=== PATIENT | male | born 1935 | race Caucasian/White ===

== ENCOUNTER 2016-08-07 11:46 | Day surgery (SDC) | payer MEDICARE ==
[~2016-08-07] VITALS: Ht 175.3 cm; Wt 78.4 kg
[~2016-08-07 11:46] MED LIST: ASPI325T PO; ATEN25TA PO; ELIQ5TAB PO; EPIP0.3I2 IJ; ISOVUE-300 61% 50ML VIAL (Q9967) As Ordered ONE; LIDOCAINE 1% SDV INJ 30 ML VIAL As Ordered ONE; OMEP20CA3 PO; PRAV40TA2 PO; VANCOMYCIN 1000 MG/20 ML VIAL (J3370) As Ordered ONE
[2016-08-07] MEDS ORDERED: LR 500 ML IV ONE (12:00)
[2016-08-07] MEDS ORDERED: LR 1,000 ML IV ONE (12:00)
[2016-08-07] MEDS ORDERED: PROPOFOL 200 MG/20 ML VIAL As Ordered ONE ×2 (15:36→16:27)
[2016-08-07] MEDS ORDERED: fentaNYL 100 MCG/2 ML INJECTION (J3010) As Ordered ONE (15:36)
[2016-08-07] MEDS ORDERED: ePHEDrine SULFATE 25 MG/5 ML(5MG/ML) SYRINGE As Ordered ONE (16:45)
[2016-08-07] MEDS ORDERED: NEOSPORIN TOP OINT 15GM As Ordered ONE (17:41)
--- NOTE | 2016-08-07 18:05 | REP ---
PACEMAKER FLOURO: HISTORY: Pacemaker insertion. A single radiograph was obtained with a c-arm. The patient is status-post pace marker insertion. Fluoroscopic time 4 minutes 32 seconds. IMPRESSION: The patient is status-post pacemaker insertion. Signed by Chuck Menezes MD 08/07/2016 06:08 P
--- NOTE | 2016-08-07 19:03 | REP ---
Chest one-view HISTORY: Postop Comparison: 10/12/2013 The lungs are clear. The heart is normal in size. The pulmonary vasculature is normal in appearance. A cardiac pacemaker is present. There is no pneumothorax. Impression: No acute disease. Signed by hCuck Menezes MD 08/07/2016 06:55 P
[2016-08-07] MEDS ORDERED: ACETAMINOPHEN TAB 650MG DOSE (2X325MG) PO PRN (19:15)
--- NOTE | 2016-08-07 19:20 | RO ---
DATE OF PROCEDURE: 08/07/2016 PREOPERATIVE DIAGNOSES: 1. Complete heart block. 2. Medtronic implantable loop recorder in situ. POSTOPERATIVE DIAGNOSES: 1. Complete heart block. 2. Successful removal of implantable loop recorder. FINDINGS: 1. Complete heart block. 2. Implantable loop recorder successfully removed. OPERATIVE PROCEDURE: 1. Implantation of Medtronic dual chamber pacemaker. 2. Explantation of Medtronic loop recorder. SURGEON: Nikko Avilez MD DENTAL LABORATORY TECHNICIAN APPRENTICE: None. ANESTHESIA: Lidocaine 1% local/monitored anesthetic care. SPECIMENS: None. ESTIMATED BLOOD LOSS: Less than 20 mL. BLOOD PRODUCTS REPLACED: None. DRAINS: None. COMPLICATIONS: None. DESCRIPTION OF OPERATION: The patient was prepped and draped over the left anterior chest. Lidocaine 1% was used for local anesthetic. Ioban film was applied. A left subclavian venogram was performed with a mixture of 2/3 contrast/1/3 saline with a total volume of 15 mL injected via a vein in the left upper extremity and this was used as a venogram in real time to enter into the left subclavian vein with a micropuncture needle. This was then guidewire exchanged for a guidewire that came with one of the #7-Australian sheaths. Next, an incision approximately 2.5 inches in length was made through the skin using a PEAK PlasmaBlade. The PEAK PlasmaBlade was then used to get through the fatty layer and the fibrous Stew's fascia. Next, the guidewire was pulled through the skin at the incision site. Next, I used another micropuncture needle and went about a centimeter and a half more lateral to the entry site of the first guidewire at the level of the pectoral muscle and was able to get into the left subclavian vein using the guidewire as a fluoroscopic guide. This was then guidewire exchanged for the other guidewire that came with the other #7-Australian sheath. Next, a #7-Australian sheath with introducer was placed over the more lateral guidewire, was then used for access for the ventricle lead. The ventricle lead was placed under fluoroscopic guidance into the right ventricle apex position where it was secured with a total of 8 turns. This position was found to be electrically and anatomically satisfactory and no diaphragm stimulation could be palpated on either side with 10 volts high open pacing. The sheath was removed and the ventricular lead was secured to the pectoral muscle using #0 Ethibond suture, using two individual sutures to the pectoral muscle and then around a notch on the tie-down sleeve. Next, the other #7-Australian sheath with introducer was placed over the more medial of the guidewires and advanced into the left subclavian vein. This was used for venous access for the atrial lead. The atrial lead was placed into the right atrial appendage position with the help of a preformed J-stylet. It was secured with a total of 10 turns. This position was found to be electrically and anatomically satisfactory. The #7-Australian sheath was removed and the atrial lead was secured to the pectoral muscle the same as was performed for the ventricle lead using #0 Ethibond suture material with two sutures to secure it to the pectoral muscle. Next, another #0 Ethibond suture was placed through the pectoral muscle to serve as the tie down for the pacemaker pulse generator. Next, the terminal pins of the ventricle and atrial lead were placed into their respective ports in the header of the pacemaker pulse generator and each one secured by tightening the set screws with the Hex screwdriver. The excess lead material was then coiled underneath the pulse generator and placed along with the pacemaker pulse generator to the pacemaker pocket with the excess lead material below the generator and the generator on top. The generator was then secured to the pectoral muscle with the previously placed #0 Ethibond suture. Deep layer was closed using individual sutures consisting of #2-0 Vicryl. Three additional #2-0 Vicryl sutures were used to help approximate the more superficial layer. The skin was then closed using tova. Next, attention was turned to removal of the implantable loop recorder. After application of lidocaine an incision less than 1 cm was made with the PEAK PlasmaBlade through the skin perpendicular to the medial end of the loop recorder. The loop recorder was then removed and one deep stitch was used to close the deep layer using #2-0 Vicryl. Next, to approximate the skin edges, I placed a subcuticular stitch consisting of #4-0 Biosyn. The ends were placed through the skin on both sides and placed under light tension, following which three layers of Dermabond was applied. Next, the free ends of the Biosyn suture were snipped at the level of the skin. The pacemaker incision was then dressed with triple antibiotic ointment followed by a bio-occlusive dressing. Following this the patient received a left arm sling. The pacemaker pulse generator implanted was a Medtronic Arielle GALLEGO, MRI Sure Scan. It had model #A2DR01 with serial #[id number]. The right ventricle lead implanted was a Medtronic, model #4076-58 cm with serial #[id number]. Testing in the operating room for the right ventricle lead in bipolar configuration showed capture threshold of 0.3 volts at 0.5 ms with lead impedance of 770 ohms and R wave amplitude of 6.8 mV and slew rate of 4.0 volts per second. The right atrial lead implanted was a Medtronic, model #4076-52 cm with serial #[id number]. Final testing for the right atrial lead in bipolar configuration showed capture threshold of 0.5 volts at 0.5 ms with lead impedance of 526 ohms and P wave amplitude of 4.9 mV with slew rate of 1.8 volts per second. The implantable loop recorder removed was a Medtronic LINQ, model #LNQ11 with serial #[id number]. It was originally implanted 08/17/2014.
[2016-08-07 19:34] VITALS: BP 158/97
[2016-08-07 20:27] VITALS: BP 155/97
[2016-08-07] MEDS ORDERED: SLF 3 ML SYR IV PRN (20:30)
[2016-08-07] MEDS: ASCORBIC ACID 250 MG TAB PO SCH (21:00)
[2016-08-07] MEDS ORDERED: PRAVASTATIN 20 MG TAB PO SCH (21:00)
[2016-08-07] MEDS: SLF 3 ML SYR IV SCH (21:26)
[2016-08-07 21:30] VITALS: BP 145/83
[2016-08-07 23:00] VITALS: BP 156/89
[2016-08-08 04:41] VITALS: BP 129/74
[2016-08-08] MEDS: SLF 3 ML SYR IV SCH (06:29)
[2016-08-08 08:00] VITALS: BP 123/69
--- NOTE | 2016-08-08 08:16 | ECGEPIP ---
Stationary ECG Study [facility] Test Date: 2016-08-07 Pat Name: ACE SAUCEDO Department: Room: - Gender: M Secondary Connector Armature: : 1935 Requested By: Nikko Avilez Order Number: [id number] Reading MD: Ry Leong Measurements Intervals [place] Rate: 76 P: 153 LA: 184 QRS: -33 QRSD: 86 T: 19 QT: 396 QTc: 446 Interpretive Statements Atrial pacing Left axis deviation Low QRS complex voltage in the limb leads Comparison tracing not on file Electronically Signed On 08-08-2016 8:15:53 EDT by Ry Leong
[2016-08-08] MEDS ORDERED: OMEPRAZOLE 20 MG CAP PO SCH (09:00)
[2016-08-08] MEDS: ASCORBIC ACID 250 MG TAB PO SCH (09:29)
[2016-08-08 12:00] VITALS: BP 122/74
[2016-08-08] MEDS ORDERED: ASPI81TA85 PO (12:00)
[2016-08-08] MEDS ORDERED: 8 HO650T PO (12:00)
[2016-08-08] MEDS ORDERED: ASCO25TA PO (12:00)
[2016-08-08] MEDS ORDERED: ASPI1TAB PO (12:00)
--- NOTE | 2016-08-08 15:07 | REP ---
Chest two views HISTORY: Postop Comparison: 08/07/2016 The lungs are clear. The heart is normal in size. The pulmonary vasculature is normal in appearance. The bony structure is intact. A cardiac pacemaker is present. There is no pneumothorax. IMPRESSION: No acute disease. Signed by Chuck Menezes MD 08/08/2016 08:41 A
== END 2016-08-08 12:47 | disposition home or self-care (01) ==
LOC: M SDC 11:46 → M PCU 18:55 → M SDC 08-08 12:47
PROVIDERS: ATTEND Internal Medicine Cardiovascular Disease
DX: I44.2 Atrioventricular block, complete (principal); I48.0 Paroxysmal atrial fibrillation; I49.5 Sick sinus syndrome; R55 Syncope and collapse; I10 Essential (primary) hypertension; E78.00 Pure hypercholesterolemia, unspecified; K21.9 Gastro-esophageal reflux disease without esophagitis; M12.9 Arthropathy, unspecified; N40.0 Benign prostatic hyperplasia without lower urinary tract symptoms; Z88.8 Allergy status to other drugs, medicaments and biological substances; Z79.899 Other long term (current) drug therapy; Z86.69 Personal history of other diseases of the nervous system and sense organs
CPT/HCPCS: 33208; 33284; 71010; 71020; 76000; 93005; C1785; C1898; J0690; J3010; Q9967

== ENCOUNTER → 2024-08-24 | Outpatient (CLI) | payer OTHER ==
[~2024-08-24] MED LIST changes: +8 HO650T2 PO; +ASCO250T20 PO; +ASPI-1 PO; -ASPI325T PO; +ASPI81TA26 PO; +ASPI81TA86 PO; -ISOVUE-300 61% 50ML VIAL (Q9967) As Ordered ONE; -LIDOCAINE 1% SDV INJ 30 ML VIAL As Ordered ONE; +OMEP1CAP73 PO; -OMEP20CA3 PO; -VANCOMYCIN 1000 MG/20 ML VIAL (J3370) As Ordered ONE
== END ==
LOC: M PLAIMG 10:23
PROVIDERS: ATTEND Physician Assistant
DX: I71.20 Thoracic aortic aneurysm, without rupture, unspecified (principal)